=== PATIENT | female | born 1955 | race Two or more races ===

== ENCOUNTER 2021-02-03 09:28 | Outpatient (CLI) | payer OTHER | END 2021-02-03 09:39 | disposition home or self-care (01) | LOC: TOM 09:28 | PROVIDERS: ATTEND Urology | DX: N20.0 Calculus of kidney (principal) ==

== ENCOUNTER 2021-02-15 13:23 | Outpatient (CLI) | payer OTHER | END 2021-02-15 13:29 | disposition home or self-care (01) | LOC: RAD 13:23 | PROVIDERS: ATTEND Urology | DX: I11.9 Hypertensive heart disease without heart failure (principal) ==

== ENCOUNTER 2021-02-22 09:00 | Inpatient (IN) | payer OTHER ==
[~2021-02-22] VITALS: Ht 157.5 cm; Wt 78.5 kg
[2021-02-22] MEDS ORDERED: TOPROL XL50 MG PO (12:12)
[2021-02-24] MEDS ORDERED: DICLOFENAC SODI50 MG (07:47)
[2021-02-24] MEDS ORDERED: PREDNISONE10 M2 (07:47)
== END 2021-02-26 09:24 | disposition home or self-care (01) | DRG 661 ==
LOC: O/R 02-24 05:38 → SURG 02-24 05:38 → SURH 02-24 07:00 → SURG 02-24 11:23
PROVIDERS: ADMIT Urology; ATTEND Urology
PROC: 0TC43ZZ Extirpation of Matter from Left Kidney Pelvis, Percutaneous Approach (ICD-10-PCS; principal; 2021-02-24 07:00)
DX: N20.0 Calculus of kidney (principal); I10 Essential (primary) hypertension